=== PATIENT | female | born 1950 | race Two or more races ===

== ENCOUNTER → 2018-11-17 08:43 | Outpatient (CLI) | payer OTHER | END | disposition home or self-care (01) | LOC: SONOGRAMA 08:43 | DX: E04.2 Nontoxic multinodular goiter (principal) ==

== ENCOUNTER 2024-12-04 11:46 | Inpatient (IN) | payer OTHER ==
[~2024-12-04] VITALS: Ht 165.1 cm; Wt 73.9 kg
[2024-12-04] MEDS ORDERED: XARELTO20 MG PO (12:13)
[2024-12-04] MEDS ORDERED: LOSARTAN POTASS50 MG PO (12:13)
[2024-12-04] MEDS ORDERED: SYNJARDY XR 5-1 EACH PO (12:13)
[2024-12-04] MEDS ORDERED: METOPROLOL SUC100 MG PO (12:14)
[2024-12-04] MEDS ORDERED: METOPROLOL SUCCINATE 100 MG TAB.SR.24H PO ONE (12:15)
[2024-12-04] MEDS ORDERED: 0.9 % SODIUM CHLORIDE 1,000 ML IV ONE (12:15)
--- NOTE | 2024-12-04 12:15 | NUR ---
SE RECIBE PACIENTE CON DEBILIDAD AL MOMENTO. REFIERE SUFRIO 2 CAIDAS EN OCAMPO HOGAR POR "ESTAR MUY DEBIL". SE THANH S/V, SE REALIZA EKG Y SE PRESENTA A .
--- NOTE | 2024-12-04 12:30 | NUR ---
PTE ALERTA Y ORIENTADA X3 SE UBICA EN CAMA EN POSICION SEMI SENTADA CON BARANDAS ELEVADAS POR OCAMPO SEGURIDAD. PTE CONECTADA A MONITOR CARDIACO Y OXIMETRIA. SE CANALIZA EN BRAZO IZQ AREA MARTHA DE EDEMA Y ENROJECIMIENTO. SE THANH MUESTRAS DE ACMERON BROOK ORDEN MEDICA BAJO MEDIDAS ASEPTICAS. SE ORIENTA A PTE QUIEN REFIERE ENTENDER Y ACEPTAR. SE NOTIFICA A FARMACIA SOBRE TX PENDIENTE. SE MANTIENE BAJO OBSERVACION POR CAMBIO.
[2024-12-04 12:56] LABS: HEMATOCRIT 42.3 % (36.0-45.00); HEMOGLOBIN 14.5 g/dL (12.0-15.00); MEAN CORPUSCULAR HEMOGLOBIN 29.8 pg (27.00-32.0); MEAN CORPUSCULAR HGB CONC 34.2 g/dl (32.0-36.0); PLATELET COUNT 143 K/uL (150-450); RED BLOOD COUNT 4.86 M/uL (4.00-6.00); RED CELL DISTRIBUTION WIDTH 13.7 % (11.5-14.5)
[2024-12-04 13:16] LABS: INR 1.1; PARTIAL THROMBOPLASTIN TIME 27.9 SECONDS (22.0-34.0); PROTHROMBIN TIME 11.9 SECONDS (9.0-11.5)
[2024-12-04 13:23] LABS: ALBUMIN 3.5 gm/dL (3.4-5.0); BILIRUBIN TOTAL 0.84 mg/dL (0.3-1.2); CALCIUM 8.6 mg/dL (8.5-10.1); CREATININE SERUM 1.43 mg/dL (0.55-1.02); GFR 36.07; GLOBULINA 3.7 G/DL (2.4-3.5); POTASSIUM 3.85 mEq/L (3.5-5.1); TOTAL PROTEIN 7.2 gm/dL (6.4-8.2)
[2024-12-04] MEDS ORDERED: INSULIN REGULAR, HUMAN 1,000 UNIT/10 ML UNITS IV ONE (14:30)
--- NOTE | 2024-12-04 15:00 | NUR ---
PTE ALERTA Y ORIENTADA X3 CONECTADA A MONITOR CARDIACO Y OXIMETRIA DE PULSO CONTINUA. UBICADA EN DESCANZO EN CAMA BAJA CON BARANDAS ELEVADAS Y BUEN PATRON RESPIRATORIO. EXTREMIDADES SUPERIORES LIBREDE EDEMA Y ERITEMA CON CANALIZACION #18 EN BRAZO DERECHO PATENTE RECIBIENDO IV 0.9% NSS @ 21ML/HR. ABDOMEN DEPRESIBLE AL TACTO CON PERSITALSIS PRESENTE Y PTE ORINA EXPONTANEO CON ASISTENCIA. EXTREMIDADES INFERIORES LIBRES DE EDEMA Y ERITEMA
[2024-12-04 16:35] LABS: PH,URINE 5.5 (5.0-8.0); URINE APPEARANCE Cloudy; URINE BILIRRUBIN Negative (NEGATIVE); URINE BLOOD Moderate; URINE COLOR Yellow; URINE KETONE Trace (NEGATIVE); URINE LEUKOCYTE Negative; URINE NITRATE Negative; URINE UROBILINOGEN 0.2 E.U./dl
[2024-12-04 16:39] LABS: URINE BACTERIA 20.8 uL (0.0-1933); URINE CAST 6.77 uL (0.0-1.40); URINE EPITHELIAL CELLS 28.1 uL (0.0-38.8); URINE RBC 20.7 uL (0.0-20.8); URINE WBC 12.1 uL (0.0-23.2)
[2024-12-04 16:56] LABS: URINE GLUCOSE 500 MG/DL (NEGATIVE); URINE PROTEIN 100 (NEGATIVE); URINE YEAST FEW /hpf
--- NOTE | 2024-12-04 17:05 | NUR ---
1600 APROX. PTE ALERTA Y ORIENTADA X3 NOTIFICA DESEO DE IR AL OTILIO Y COMENTA QUE PUEDE LEVATARSER Y IR AL MISMO. SE DESCONECTA PTE DE TELEMETRIA Y OXIMETRIA Y SE ASISTE EN CAMINATA HACIA EL OTILIO. WINTER VEZ DENTRO DEL MISMO, PTE SE RESBALA Y AL SUELO SOBRE KOMAL GLUTEOS, SE REALIZA ESTIMADO FISICO, PTE COMENTA DOLOR EN MANO DERECHA. SE LEVANTA PTE DEL SUELO Y SE REUBICA EN CAMA. 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 SE NOTIFICA A DRA. [place] QUIEN ORDENA XRAYS DE LA MANO AFECTADA, SIN [place], PTE REHUSA LA MISMA CUANDO PERSONAL DE RADRIOGRAFIAS INTENTA REALIZAR XRAYS. SE MANTIENE PTE BAJO OBSERVACION.
[2024-12-04] MEDS ORDERED: ENALAPRILAT DIHYDRATE 1.25 MG/ML VIAL IV PRN (17:30)
[2024-12-04] MEDS ORDERED: DEXTROSE 50 % IN WATER 0.5 G/ML DISP.SYRIN IV PRN (17:30)
[2024-12-04] MEDS ORDERED: 0.9 % SODIUM CHLORIDE 1,000 ML IV SCH (17:30)
[2024-12-04] MEDS ORDERED: INSULIN LISPRO 1,000 UNIT/10 ML UNITS SUBCUTANEO PRN (17:30)
[2024-12-04] MEDS ORDERED: FAMOTIDINE/PF 20 MG/2 ML VIAL ONE (17:52)
[2024-12-04] MEDS ORDERED: CHOLESTYRAMINE/ASPARTAME LIGHT 4 G/PKT PACKET PO ONE (18:45)
[2024-12-04] MEDS ORDERED: RIVAROXABAN 20 MG TABLET PO SCH (21:00)
[2024-12-04] MEDS ORDERED: FAMOTIDINE/PF 20 MG/2 ML VIAL IV SCH (21:00)
[2024-12-04] MEDS ORDERED: METOPROLOL SUCCINATE 100 MG TAB.SR.24H PO SCH (21:00)
[2024-12-04 21:02] LABS: CREATININE SERUM 1.15 mg/dL (0.55-1.02)
[2024-12-05 02:12] VITALS: BP 112/76; O2SAT 96
[2024-12-05 06:29] LABS: HEMOGLOBIN 14.4 g/dL (12.0-15.00); MEAN CELL VOLUME 86.9 fL (80.00-100.00); MEAN CORPUSCULAR HEMOGLOBIN 29.9 pg (27.00-32.0); MEAN CORPUSCULAR HGB CONC 34.4 g/dl (32.0-36.0); PLATELET COUNT 139 K/uL (150-450); RED BLOOD COUNT 4.83 M/uL (4.00-6.00); RED CELL DISTRIBUTION WIDTH 13.4 % (11.5-14.5)
[2024-12-05 06:41] LABS: ERYTHROCYTE SEDIMENTATION RATE 45 mm/hr
[2024-12-05 06:52] LABS: C-REACTIVE PROTEIN 13.4 MG/DL (0.00-0.29); CALCIUM 8.8 mg/dL (8.5-10.1); CREATININE SERUM 1.11 mg/dL (0.55-1.02); GFR 48.32; MAGNESIUM 2.1 mg/dL (1.8-2.4); PHOSPHOROUS 2.4 mg/dL (2.5-4.9); POTASSIUM 3.37 mEq/L (3.5-5.1); TSH 0.729 uIU/mL (0.358-3.74)
[2024-12-05] MEDS ORDERED: POTASSIUM CHLORIDE 20MEQ/100ML H2O PB IV NR (09:00)
[2024-12-05 09:03] VITALS: BP 99/67
[2024-12-05] MEDS ORDERED: DEXTROSE 50 % IN WATER 0.5 G/ML VIAL IV PRN (10:00)
[2024-12-05] MEDS ORDERED: METRONIDAZOLE/SODIUM CHLORIDE 100 ML IV SCH (13:44)
[2024-12-05] MEDS ORDERED: CHOLESTYRAMINE/ASPARTAME LIGHT 4 G/PKT PACKET PO STA (13:45)
[2024-12-05] MEDS ORDERED: POTASSIUM PHOS,M-BASIC-D-BASIC 3 MM/ML VIAL IV ONE (16:00)
[2024-12-05 16:44] VITALS: BP 103/73; O2SAT 96
[2024-12-05] MEDS ORDERED: CIPROFLOXACIN IN 5 % DEXTROSE 200 ML IV SCH (17:00)
[2024-12-06 03:08] VITALS: BP 111/73; O2SAT 96
[2024-12-06 07:03] LABS: URINE APPEARANCE Clear; URINE BILIRRUBIN Negative (NEGATIVE); URINE BLOOD Moderate; URINE COLOR Yellow; URINE KETONE Negative (NEGATIVE); URINE LEUKOCYTE Small; URINE NITRATE Negative; URINE PROTEIN 30 (NEGATIVE); URINE UROBILINOGEN 0.2 E.U./dl
[2024-12-06 07:05] LABS: URINE EPITHELIAL CELLS 17.8 uL (0.0-38.8); URINE RBC 208.5 uL (0.0-20.8); URINE WBC 120.9 uL (0.0-23.2)
[2024-12-06 07:43] LABS: URINE CAST 1.03 uL (0.0-1.40); URINE GLUCOSE 250 MG/DL (NEGATIVE)
[2024-12-06 09:21] VITALS: BP 93/59; O2SAT 97
[2024-12-06 09:55] LABS: BILIRUBIN TOTAL 0.42 mg/dL (0.3-1.2); CALCIUM 8.5 mg/dL (8.5-10.1); CREATININE SERUM 0.86 mg/dL (0.55-1.02); GFR 64.86; GLOBULINA 3.4 G/DL (2.4-3.5); POTASSIUM 4.12 mEq/L (3.5-5.1); TOTAL PROTEIN 6.4 gm/dL (6.4-8.2); URIC ACID 7.1 mg/dL (2.5-7.5)
[2024-12-06] MEDS ORDERED: LACTOBACILLUS ACIDOPHILUS 1 CAP CAP PO SCH (17:00)
[2024-12-06 18:59] VITALS: BP 127/87
[2024-12-07 02:35] VITALS: BP 111/65; O2SAT 97
[2024-12-07 07:30] VITALS: BP 122/85; O2SAT 96
[2024-12-07 16:52] VITALS: BP 166/79; O2SAT 96
[2024-12-08 01:57] VITALS: BP 116/79; O2SAT 97
[2024-12-08 07:01] LABS: HEMATOCRIT 36.3 % (36.0-45.00); HEMOGLOBIN 12.6 g/dL (12.0-15.00); MEAN CELL VOLUME 85.5 fL (80.00-100.00); MEAN CORPUSCULAR HEMOGLOBIN 29.7 pg (27.00-32.0); MEAN CORPUSCULAR HGB CONC 34.8 g/dl (32.0-36.0); PLATELET COUNT 181 K/uL (150-450); RED BLOOD COUNT 4.25 M/uL (4.00-6.00); RED CELL DISTRIBUTION WIDTH 13.7 % (11.5-14.5)
[2024-12-08 07:55] VITALS: BP 132/84; O2SAT 95
[2024-12-08 07:59] LABS: CALCIUM 8.6 mg/dL (8.5-10.1); CREATININE SERUM 0.67 mg/dL (0.55-1.02); GFR 86.52; MAGNESIUM 1.5 mg/dL (1.8-2.4); PHOSPHOROUS 3.1 mg/dL (2.5-4.9); POTASSIUM 4.62 mEq/L (3.5-5.1)
[2024-12-08 08:05] LABS: C-REACTIVE PROTEIN 1.77 MG/DL (0.00-0.29)
[2024-12-08 18:30] VITALS: BP 136/84
[2024-12-08] MEDS ORDERED: FAMOtidine 20 MG TABLET PO SCH (21:00)
[2024-12-09 03:05] VITALS: BP 133/89; O2SAT 97
[2024-12-09 18:54] VITALS: BP 143/86
[2024-12-09] MEDS ORDERED: INSULIN GLARGINE,HUM.REC.ANLOG 1,000 UNITS/10 ML UNITS SUBCUTANEO STA (22:34)
[2024-12-09] MEDS ORDERED: INSULIN GLARGINE,HUM.REC.ANLOG 1,000 UNITS/10 ML UNITS SUBCUTANEO ONE (22:35)
[2024-12-10 02:04] VITALS: BP 138/75; O2SAT 98
[2024-12-10 09:08] VITALS: BP 126/80
[2024-12-10] MEDS ORDERED: CIPRO500 MG PO (14:12)
[2024-12-10] MEDS ORDERED: SYNJARDY XR 5-1 EACH PO (14:12)
[2024-12-10] MEDS ORDERED: INTESTINEX680 M1 PO (14:12)
[2024-12-10] MEDS ORDERED: TOPROL XL100 M1 PO (14:12)
[2024-12-10] MEDS ORDERED: FAMOTIDINE20 MG PO (14:12)
[2024-12-10] MEDS ORDERED: XARELTO20 MG PO (14:12)
[2024-12-10] MEDS ORDERED: LOSARTAN POTASS50 MG PO (14:12)
[2024-12-10] MEDS ORDERED: INSULIN GLARGINE,HUM.REC.ANLOG 1,000 UNITS/10 ML UNITS SUBCUTANEO SCH (21:00)
== END 2024-12-10 16:57 | disposition home or self-care (01) | DRG 641 ==
LOC: ER 11:46 → MEDJ 18:54 → SEC-K 18:54 → MEDJ 19:04 → SEC-K 19:11 → MEDJ 19:46
PROVIDERS: General Practice; Internal Medicine Endocrinology, Diabetes & Metabolism; Internal Medicine Geriatric Medicine; ADMIT Specialist; ATTEND Specialist
PROC: BR20ZZZ Computerized Tomography (CT Scan) of Cervical Spine (ICD-10-PCS; 2024-12-04)
PROC: B020ZZZ Computerized Tomography (CT Scan) of Brain (ICD-10-PCS; 2024-12-04)
PROC: 4A12X4Z Monitoring of Cardiac Electrical Activity, External Approach (ICD-10-PCS; 2024-12-04)
PROC: 8E0ZXY6 Isolation (ICD-10-PCS; principal; 2024-12-08)
DX: E86.0 Dehydration (principal); N17.9 Acute kidney failure, unspecified; A02.9 Salmonella infection, unspecified; K52.9 Noninfective gastroenteritis and colitis, unspecified; E87.1 Hypo-osmolality and hyponatremia; E11.9 Type 2 diabetes mellitus without complications; Z79.4 Long term (current) use of insulin; I25.10 Atherosclerotic heart disease of native coronary artery without angina pectoris; I48.91 Unspecified atrial fibrillation; I10 Essential (primary) hypertension